=== PATIENT | male | born 1945 ===

== ENCOUNTER 2017-07-24 07:58 | Day surgery (SDC) | payer MEDICARE, MEDICAID ==
[2015-09-13 09:42] VITALS: PULSE 64
[2017-07-24 08:13] VITALS: BMI 24.1
[2017-07-24] MEDS ORDERED: Lidocaine 2% Jelly (Uro-Jet) ONE (08:25)
[2017-07-24] MEDS ORDERED: Propofol 10 mg/ml Inj (20 ML) ONE (09:52)
[2017-07-24] MEDS: Gentamicin 160 MG in Sodium Chloride 0.9% 100 ML IVPB ONE ×2 (09:58→09:59)
[2017-07-24] MEDS ORDERED: HYDROmorphone 0.5 mg/0.5 ml ISec IVP PRN (10:38)
[2017-07-24] MEDS ORDERED: Sodium Chloride 0.9% 1,000 ML IV SCH (10:45)
[2017-07-24 11:19] VITALS: TEMP 97; O2SAT 96
[2017-07-24 11:44] VITALS: BP 136/71; PULSE 69; RESP 18
--- NOTE | 2017-07-24 15:03 | OP ---
PROCEDURE DATE: 07/24/2017. PREOPERATIVE DIAGNOSIS: Elevated prostate-specific antigen 4.9. POSTOPERATIVE DIAGNOSIS: Elevated prostate-specific antigen 4.9. PROCEDURE: Transrectal ultrasound diagnostic, transrectal ultrasound guidance and prosthetic biopsy. SURGEON: Baron Glasgow MD. DESCRIPTION OF PROCEDURE: The patient was interviewed prior to induction of anesthesia in the holding area and he confirmed he has not taken his Pradaxa for a week and has not taken any NSAIDs in the last 10 days. He was told that unlikely if he gets high fever or chills, he should go immediately to the emergency room, if he cannot get me on the phone right away. He was brought to the operating room, placed in lithotomy position under sedation. His rectum was cleansed with Betadine and the patient was also administered Rocephin 1 gm IV piggyback and gentamicin 160 mg IV piggyback. The transducer was introduced into the rectum and measurements were taken, indicating a 46 cm prostate volume. No hypoechoic lesions were noted. We now took biopsies in 6 sextants, 2 cores per sextant and sent them in 6 jars to pathology. We maintained pressure in the rectum with the transducer for about 5 minutes and upon withdrawing the transducer there was significant bleeding. The patient tolerated the procedure well. Baron Glasgow MD
== END 2017-07-24 12:44 | disposition home or self-care (01) ==
LOC: C.SDS 07:58
PROVIDERS: ATTEND Urology
DX: C61 Malignant neoplasm of prostate (principal); R97.20 Elevated prostate specific antigen [PSA]; Z79.84 Long term (current) use of oral hypoglycemic drugs; Z79.899 Other long term (current) drug therapy; Z79.01 Long term (current) use of anticoagulants; Z87.891 Personal history of nicotine dependence; I48.91 Unspecified atrial fibrillation; E11.22 Type 2 diabetes mellitus with diabetic chronic kidney disease; I12.9 Hypertensive chronic kidney disease with stage 1 through stage 4 chronic kidney disease, or unspecified chronic kidney disease; N18.9 Chronic kidney disease, unspecified
CPT/HCPCS: 55700; 88305; 88342; J1580